=== PATIENT | female | born 1970 | race Caucasian/White ===

== ENCOUNTER 2017-03-19 16:21 | Emergency (ER) | payer OTHER ==
[2017-03-19 16:31] VITALS: BP 146/101
== END 2017-03-19 18:37 | disposition home or self-care (01) ==
LOC: ED 16:21
DX: J20.9 Acute bronchitis, unspecified (principal); J02.9 Acute pharyngitis, unspecified; I10 Essential (primary) hypertension
CPT/HCPCS: J1100

== ENCOUNTER 2017-12-04 13:37 | Emergency (ER) | payer OTHER ==
[~2017-12-04] VITALS: Ht 157.5 cm; Wt 83.9 kg
[2017-12-04 13:46] VITALS: Ht 157.5 cm; Wt 83.9 kg
[2017-12-04 14:53] LABS: BASOPHIL % 0.5 % (0-2); RED CELL DISTRIBUTION WIDTH 12.9 % (11.5-14.5)
[2017-12-04 14:54] LABS: CALCIUM 8.8 mg/dL (8.5-10.1); CARBON DIOXIDE 25.6 mmol/L (21-32); CHLORIDE SERUM 107 mmol/L (98-107); CREATININE SERUM 0.7 mg/dL (0.6-1.0); GFR1 > 60 mL/min; GLUCOSE SERUM 115 mg/dL (74-106); POTASSIUM SERUM 3.3 mmol/L (3.5-5.1); SODIUM SERUM 141 mmol/L (136-145)
[2017-12-04 14:56] LABS: PLATELET COUNT 435 x10^3mcL (130-400)
[2017-12-04 14:59] LABS: ALKALINE PHOSPHATASE 67 U/L (46-116); ALT/SGPT 18 U/L (14-59); AST/SGOT 12 U/L (15-37); BILIRUBIN TOTAL 0.3 mg/dL (0.20-1.00); LIPASE 109 IU/L (73-393); TOTAL PROTEIN, SERUM 6.4 g/dL (6.4-8.2)
[2017-12-04 15:10] LABS: ALBUMIN 3.3 g/dL (3.4-5.0)
[2017-12-04 15:23] LABS: microscopic required? NO
[2017-12-04 15:43] LABS: urine erythrocyte NEGATIVE (NEGATIVE)
[2017-12-04 19:31] VITALS: BP 161/111
== END 2017-12-04 19:31 | disposition home or self-care (01) ==
LOC: ED 13:37
PROVIDERS: Emergency Medicine
DX: K80.20 Calculus of gallbladder without cholecystitis without obstruction (principal); I10 Essential (primary) hypertension
CPT/HCPCS: J3010; J7030; Q0092; Q0162

== ENCOUNTER 2017-12-07 01:31 | Emergency (ER) | payer OTHER ==
[~2017-12-07] VITALS: Ht 157.5 cm; Wt 83.5 kg
[2017-12-07 01:40] VITALS: Ht 157.5 cm; Wt 83.5 kg
[2017-12-07 02:07] VITALS: BP 126/65
== END 2017-12-07 02:07 | disposition home or self-care (01) ==
LOC: ED 01:31
DX: K80.50 Calculus of bile duct without cholangitis or cholecystitis without obstruction (principal); I10 Essential (primary) hypertension

== ENCOUNTER 2018-11-19 23:15 | Emergency (ER) | payer OTHER ==
[~2018-11-19] VITALS: Ht 157.5 cm; Wt 84.4 kg
[2018-11-19 23:25] VITALS: Ht 157.5 cm; Wt 84.4 kg
[2018-11-20 01:08] LABS: BASOPHIL % 0.5 % (0-2); PLATELET COUNT 384 x10^3mcL (130-400); RED CELL DISTRIBUTION WIDTH 13.3 % (11.5-14.5)
[2018-11-20 01:14] LABS: CALCIUM 8.7 mg/dL (8.5-10.1); CHLORIDE SERUM 105 mmol/L (98-107); CREATININE SERUM 0.8 mg/dL (0.6-1.0); GFR1 > 60 mL/min; GLUCOSE SERUM 111 mg/dL (74-106); POTASSIUM SERUM 3.5 mmol/L (3.5-5.1); SODIUM SERUM 141 mmol/L (136-145)
[2018-11-20 01:27] LABS: FREE T4 0.88 ng/dL (0.76-1.46)
[2018-11-20 01:48] LABS: microscopic required? NO
[2018-11-20 02:00] LABS: urine erythrocyte NEGATIVE (NEGATIVE)
[2018-11-20 03:31] VITALS: BP 186/104
== END 2018-11-20 03:31 | disposition home or self-care (01) ==
LOC: ED 23:15
PROVIDERS: Emergency Medicine
DX: R51 Headache (principal); I10 Essential (primary) hypertension; R42 Dizziness and giddiness; Z88.2 Allergy status to sulfonamides; Z98.890 Other specified postprocedural states
CPT/HCPCS: 84439; J1200; J1885; J2270; J2405; J2765; Q0092

== ENCOUNTER 2019-01-21 22:39 | Emergency (ER) | payer OTHER ==
[~2019-01-21] VITALS: Ht 157.5 cm; Wt 83.5 kg
[2019-01-21 22:42] VITALS: BP 161/102; Ht 157.5 cm; Wt 83.5 kg
== END 2019-01-22 04:30 | disposition home or self-care (01) ==
LOC: ED 22:39
DX: J06.9 Acute upper respiratory infection, unspecified (principal); I10 Essential (primary) hypertension; Z88.1 Allergy status to other antibiotic agents; Z88.2 Allergy status to sulfonamides
CPT/HCPCS: 87804; J1885; Q0092

== ENCOUNTER 2019-04-01 00:39 | Emergency (ER) | payer OTHER ==
[~2019-04-01] VITALS: Ht 157.5 cm; Wt 84.5 kg
[2019-04-01 00:52] VITALS: Ht 157.5 cm; Wt 84.5 kg
[2019-04-01 02:54] VITALS: BP 181/108
== END 2019-04-01 02:54 | disposition home or self-care (01) ==
LOC: ED 00:39
DX: R10.32 Left lower quadrant pain (principal); I10 Essential (primary) hypertension; Z88.2 Allergy status to sulfonamides; Z98.890 Other specified postprocedural states
CPT/HCPCS: J1885

== ENCOUNTER 2019-06-12 06:20 | Emergency (ER) | payer OTHER ==
[~2019-06-12] VITALS: Ht 157.5 cm; Wt 85.8 kg
[2019-06-12 06:25] VITALS: Ht 157.5 cm; Wt 85.8 kg
[2019-06-12 07:54] VITALS: BP 176/90
== END 2019-06-12 07:54 | disposition home or self-care (01) ==
LOC: ED 06:20
DX: J40 Bronchitis, not specified as acute or chronic (principal); I10 Essential (primary) hypertension; Z88.2 Allergy status to sulfonamides
CPT/HCPCS: J1885; Q0092

== ENCOUNTER 2019-06-30 21:57 | Emergency (ER) | payer OTHER ==
[~2019-06-30] VITALS: Ht 157.5 cm; Wt 86.2 kg
[2019-06-30 22:27] VITALS: Ht 157.5 cm; Wt 86.2 kg
[2019-07-01 00:09] VITALS: BP 160/80
== END 2019-07-01 00:05 | disposition home or self-care (01) ==
LOC: ED 21:57
DX: M54.5 Low back pain (principal); R05 Cough; I10 Essential (primary) hypertension; Z88.2 Allergy status to sulfonamides